=== PATIENT | female | born 1980 | race Caucasian/White ===

== ENCOUNTER 2021-09-16 20:45 | Emergency (ER) | payer OTHER | END 2021-09-16 23:10 | disposition home or self-care (01) | LOC: ER1 20:45 | DX: S13.4XXA Sprain of ligaments of cervical spine, initial encounter (principal); I10 Essential (primary) hypertension; V49.40XA Driver injured in collision with unspecified motor vehicles in traffic accident, initial encounter; W22.11XA Striking against or struck by driver side automobile airbag, initial encounter; Y92.410 Unspecified street and highway as the place of occurrence of the external cause | CPT/HCPCS: 70450; 71045; 72125; 73562; 99284 ==

== ENCOUNTER 2021-12-30 05:09 | Emergency (ER) | payer OTHER | END 2021-12-30 05:28 | disposition home or self-care (01) | LOC: ER1 05:09 | DX: H92.01 Otalgia, right ear (principal); Z03.823 Encounter for observation for suspected inserted (injected) foreign body ruled out; Z88.2 Allergy status to sulfonamides; Z97.5 Presence of (intrauterine) contraceptive device | CPT/HCPCS: 99282 ==